=== PATIENT | female | born 1990 | race Caucasian/White ===

== ENCOUNTER 2017-11-17 15:31 | Emergency (ER) | payer OTHER ==
[2017-11-17] MEDS ORDERED: traMADol 50 MG TAB PO (15:56)
[2017-11-17 16:08] LABS: URINE BLOOD (Dip) POC 3+ (NEGATIVE); URINE GLUCOSE (Dip) POC Negative (NEGATIVE); URINE KETONES (Dip) POC 3+ (NEGATIVE); URINE LEUKOCYTE EST (Dip) POC Negative (NEGATIVE); URINE NITRITE (Dip) POC Negative (NEGATIVE); URINE TOTAL PROTEIN POC 1+ (NEGATIVE)
[2017-11-17] MEDS: ONDANSETRON (ODT) 4 MG TAB ODT (16:16)
[2017-11-17] MEDS: KETOROLAC 30 MG INJ IM (16:16)
== END 2017-11-17 16:45 | disposition home or self-care (01) ==
LOC: FTE 15:31
DX: N94.6 Dysmenorrhea, unspecified (principal); F17.210 Nicotine dependence, cigarettes, uncomplicated
CPT/HCPCS: 81003; 81025; 96372; 99284-25